=== PATIENT | female | born 1985 | race Caucasian/White ===

== ENCOUNTER → 2017-08-28 18:04 | Outpatient (CLI) | payer OTHER, SELFPAY ==
[2017-08-28 07:33] VITALS: BP 112/72; BMI 22.9
== END ==
PROVIDERS: Visit Provider Physician Assistant
DX: J02.9 Acute pharyngitis, unspecified (principal)
CPT/HCPCS: 87077; 87081

== ENCOUNTER → 2017-09-06 17:53 | Outpatient (CLI) | payer OTHER, SELFPAY ==
--- NOTE | 2017-09-06 17:54 | CYSPIN_PTH ---
PATIENT: AMTTY PALENCIA LOC: [facility] U#:[id number] AGE/SX: 40/F ROOM: RE09/06/[address]: Dr. Taryn Cardenas MD : [id number] BED: DIS: SPEC #: [id number] RECD: 09/09/17 12:57 STATUS: JOVAN JORDIN #: [id number] RACHEL: 09/06/17 17:[address]: Taryn Cardenas DEPT: CYTOLOGY RECD BY: Miguel Santillan ENTERED: 09/09/17 12:58 SP TYPE: CYSPIN FL OTHR DR: No Primary Care Phys Tissues: Urine Procedures: Pap Stain (control) Special Stain Group II Cytospin Fluid HEADER OPERATION: Not noted PRE-OP DIAGNOSIS: Hematuria TISSUE SUBMITTED: Urine for cytology DIAGNOSIS CYTOLOGY Urine for cytology (cytospin): Negative for malignant cells. SJ:mir 09/10/17 CYTOLOGY STUDY Slides are reviewed. The specimen predominantly consists of benign squamous cells. CYTOLOGY GROSS Received is 10 ml of clear yellow fluid labeled with the patient's name and and designated per the requisition as urine. Submitted for cytology preparation. 09/09/17 TC:4 CPT: 47777
[2017-09-06 17:59] LABS: Cytology, Body Fluid / CSF SEE PATHOLOGY REPORT
== END ==
PROVIDERS: Visit Provider Obstetrics & Gynecology
DX: R30.0 Dysuria (principal); R31.29 Other microscopic hematuria
CPT/HCPCS: 87086; 88108; 88313

== ENCOUNTER → 2018-03-17 18:22 | Outpatient (CLI) | payer OTHER, SELFPAY ==
[2018-03-17 21:50] LABS: Chlamydia Trachomatis by PCR Negative (Negative); Neisserai gonorrhoeae by PCR Negative (Negative); Probe Check PASS; Sample Adequacy Control PASS; Specimen Processing Control PASS
== END ==
PROVIDERS: Visit Provider Nurse Practitioner Women's Health
DX: R30.0 Dysuria (principal)
CPT/HCPCS: 87070; 87086; 87088; 87205; 87491; 87591

== ENCOUNTER → 2018-03-19 13:58 | Outpatient (CLI) | payer OTHER, SELFPAY | PROVIDERS: Visit Provider Nurse Practitioner Women's Health | DX: R10.2 Pelvic and perineal pain (principal) | CPT/HCPCS: 76830; 76856; 93976 ==

== ENCOUNTER → 2018-04-10 16:21 | Outpatient (CLI) | payer OTHER, SELFPAY | PROVIDERS: Visit Provider Nurse Practitioner Women's Health | DX: N89.8 Other specified noninflammatory disorders of vagina (principal) | CPT/HCPCS: 87070; 87205 ==

== ENCOUNTER → 2018-04-30 08:11 | Outpatient (CLI) | payer OTHER, SELFPAY ==
--- NOTE | 2018-04-30 08:15 | US_ITS ---
STUDY: ULTRASOUND OF THE FEMALE PELVIS - COMPLETE REASON FOR EXAM: Female, 32 years old. Pain LMP: February 26, 2018 TECHNIQUE: Transabdominal and endovaginal TECHNICAL QUALITY: Adequate. COMPARISON: None. FINDINGS: The uterus is anteverted and is in a midline position. The uterus measures 6.7 x 4.0 x 3.4 cm. Trace fluid in the uterine cervix. The endometrium measures 3.2 mm in thickness, and is hyperechoic. There is no demonstrated endometrial mass. There is no demonstrated myometrial mass. The patient has an I.U.D. in place The right ovary is visualized. The right ovary measures 2.4 x 2.8 x 1.5 cm. There is a 1.3 cm complex hypoechoic ovarian lesion. There is normal arterial and normal venous vascularity. The left ovary is visualized. The left ovary measures 2.0 x 1.9 x 1.0 cm. There is no left ovarian cyst or ovarian mass. There is no visualized left adnexal mass or complex lesion. There is normal arterial and normal venous vascularity. There is mild fluid in the cul-de-sac. The pre void volume of the bladder was 369 ml. US/Transvaginal Non- IMPRESSION: Complex right ovarian nodule. Mild pelvic fluid. IUD in the uterus. Trace fluid in the cervical canal. Electronically Signed: Adam Rob DO at 21:27 EDT Tel [phone], Service support ,
--- NOTE | 2018-04-30 08:15 | US_ITS ---
STUDY: ULTRASOUND OF THE FEMALE PELVIS - COMPLETE REASON FOR EXAM: Female, 32 years old. Pain LMP: February 26, 2018 TECHNIQUE: Transabdominal and endovaginal TECHNICAL QUALITY: Adequate. COMPARISON: None. FINDINGS: The uterus is anteverted and is in a midline position. The uterus measures 6.7 x 4.0 x 3.4 cm. Trace fluid in the uterine cervix. The endometrium measures 3.2 mm in thickness, and is hyperechoic. There is no demonstrated endometrial mass. There is no demonstrated myometrial mass. The patient has an I.U.D. in place The right ovary is visualized. The right ovary measures 2.4 x 2.8 x 1.5 cm. There is a 1.3 cm complex hypoechoic ovarian lesion. There is normal arterial and normal venous vascularity. The left ovary is visualized. The left ovary measures 2.0 x 1.9 x 1.0 cm. There is no left ovarian cyst or ovarian mass. There is no visualized left adnexal mass or complex lesion. There is normal arterial and normal venous vascularity. There is mild fluid in the cul-de-sac. The pre void volume of the bladder was 369 ml. US/Pelvic (Non ) IMPRESSION: Complex right ovarian nodule. Mild pelvic fluid. IUD in the uterus. Trace fluid in the cervical canal. Electronically Signed: Adam Rob DO at 21:27 EDT Tel [phone], Service support ,
== END ==
PROVIDERS: Visit Provider Obstetrics & Gynecology
DX: N80.9 Endometriosis, unspecified (principal)
CPT/HCPCS: 76830; 76856; 93976

== ENCOUNTER → 2018-06-23 13:44 | Outpatient (CLI) | payer OTHER, SELFPAY ==
[2018-06-23 08:18] VITALS: BMI 22.1
[2018-06-25 11:58] LABS: HPV APTIMA, High Risk Negative (Negative)
== END ==
PROVIDERS: Referring Provider Obstetrics & Gynecology; Visit Provider Obstetrics & Gynecology
DX: Z12.4 Encounter for screening for malignant neoplasm of cervix (principal)
CPT/HCPCS: 87624; 88175; G0145

== ENCOUNTER → 2018-07-29 14:30 | Outpatient (CLI) | payer OTHER, SELFPAY ==
[2018-07-28 14:39] VITALS: BMI 22.1
== END ==
PROVIDERS: Referring Provider Physician Assistant; Visit Provider Physician Assistant
DX: J02.9 Acute pharyngitis, unspecified (principal)
CPT/HCPCS: 87081

== ENCOUNTER → 2018-09-24 16:09 | Outpatient (CLI) | payer OTHER, SELFPAY ==
[2018-09-24 15:20] VITALS: BMI 22.1
== END ==
PROVIDERS: Referring Provider Nurse Practitioner Women's Health; Visit Provider Nurse Practitioner Women's Health
DX: N76.0 Acute vaginitis (principal)
CPT/HCPCS: 87070; 87205

== ENCOUNTER → 2018-10-03 14:38 | Outpatient (CLI) | payer OTHER, SELFPAY ==
[2018-10-03 09:53] VITALS: BMI 22.1
== END ==
PROVIDERS: Referring Provider Physician Assistant Surgical; Visit Provider Physician Assistant Surgical
DX: J02.9 Acute pharyngitis, unspecified (principal)
CPT/HCPCS: 87081

== ENCOUNTER → 2018-10-06 15:59 | Outpatient (CLI) | payer OTHER, SELFPAY ==
[2018-10-06 13:09] VITALS: BMI 22.1
== END ==
PROVIDERS: Referring Provider Nurse Practitioner Women's Health; Visit Provider Nurse Practitioner Women's Health
DX: N76.0 Acute vaginitis (principal)

== ENCOUNTER → 2018-11-03 17:29 | Outpatient (CLI) | payer OTHER, SELFPAY ==
[2018-11-03 12:42] VITALS: BMI 22.1
== END ==
PROVIDERS: Referring Provider Nurse Practitioner Women's Health; Visit Provider Nurse Practitioner Women's Health
DX: N89.8 Other specified noninflammatory disorders of vagina (principal)
CPT/HCPCS: 87070; 87106; 87205

== ENCOUNTER → 2019-01-08 | Outpatient (CLI) | payer OTHER, SELFPAY ==
[2019-01-08 13:01] VITALS: BMI 22.2
[2019-01-08 14:35] LABS: hCG Titer Quant., Serum 315 mIU/mL (1-3)
== END | disposition home or self-care (01) ==
PROVIDERS: Referring Provider Nurse Practitioner Women's Health; Visit Provider Nurse Practitioner Women's Health
DX: N91.2 Amenorrhea, unspecified (principal); N76.0 Acute vaginitis
CPT/HCPCS: 36415; 84702; 87070; 87205

== ENCOUNTER → 2019-01-10 | Outpatient (CLI) | payer OTHER, SELFPAY ==
[2019-01-10 10:25] VITALS: BMI 22.2
[2019-01-10 11:48] LABS: hCG Titer Quant., Serum 580 mIU/mL (1-3)
== END | disposition home or self-care (01) ==
LOC: LAB 10:26
PROVIDERS: Nurse Practitioner Women's Health; Referring Provider Obstetrics & Gynecology; Visit Provider Obstetrics & Gynecology
DX: N91.2 Amenorrhea, unspecified (principal)
CPT/HCPCS: 36415; 84702

== ENCOUNTER → 2019-02-16 | Outpatient (CLI) | payer OTHER, SELFPAY ==
[2019-02-16 12:21] VITALS: BMI 22.2
[2019-02-16 12:58] LABS: Absolute Lymphocyte Count 2.83 X10^3/uL (0.83-4.51); Absolute Neutrophil Count 6.1 X10^3/uL (2.0-7.7); Basophil# 0.04 X10^3/uL; Basophil% 0.4 % (0-1); Eosinophil# 0.08 X10^3/uL; Eosinophils% 0.8 % (0-5); Hematocrit 39.3 % (37-47); Hemoglobin 13.6 g/dL (12.0-15.0); Lymphocyte # 2.83 X10^3/ul (4.0); Lymphocyte % 29.3 % (19-41); Mean Corp Hgb Conc 34.6 g/dL (32-36); Mean Corpuscular Hgb 31.1 pg (27.0-32.0); Mean Corpuscular Volume 89.9 fL (81-99); Mean Platelet Vol. 9.5 fl (6.2-12.0); Monocyte# 0.62 X10^3/uL; Monocyte% 6.4 % (0-10); NRBC Flagged by Analyzer 0 % (0-5); Neutrophil # 6.06 X10^3/uL (2.7-7.7); Neutrophil % 62.8 % (47-70); Platelet Count 251 K/mm3 (150-450); RBC Distribution Width CV 10.9 % (11.6-14.6); RBC Distribution Width SD 35.8 fl (35.1-43.9); Red Blood Count 4.37 M/mm3 (4.2-5.4); White Blood Count 9.7 K/mm3 (4.4-11.0)
[2019-02-16 23:34] LABS: HIV - WCH Non-Reactive (Nonreactive)
[2019-02-19 13:35] LABS: Rapid Plasmin Reagin (RPR) NONREACTIVE (NONREACTIVE)
== END | disposition home or self-care (01) ==
LOC: PAVLAB 12:47
PROVIDERS: Referring Provider Obstetrics & Gynecology; Visit Provider Obstetrics & Gynecology
DX: Z34.90 Encounter for supervision of normal pregnancy, unspecified, unspecified trimester (principal)
CPT/HCPCS: 36415; 85025; 86592; 86703; 86762; 86850; 86900; 87086

== ENCOUNTER → 2019-02-23 | Outpatient (CLI) | payer OTHER, SELFPAY ==
[2019-02-16 12:21] VITALS: BMI 22.2
== END | disposition home or self-care (01) ==
LOC: PAVLAB 08:49
PROVIDERS: Referring Provider Nurse Practitioner Women's Health; Visit Provider Nurse Practitioner Women's Health
DX: Z34.90 Encounter for supervision of normal pregnancy, unspecified, unspecified trimester (principal)
CPT/HCPCS: 36415

== ENCOUNTER → 2019-04-15 08:43 | Outpatient (CLI) | payer OTHER, SELFPAY ==
[2019-04-15 08:35] VITALS: BMI 22.2
== END ==
PROVIDERS: Referring Provider Obstetrics & Gynecology; Visit Provider Obstetrics & Gynecology
DX: Z36.9 Encounter for antenatal screening, unspecified (principal)
CPT/HCPCS: 36415

== ENCOUNTER → 2019-04-23 13:12 | Outpatient (CLI) | payer OTHER, SELFPAY ==
[2019-04-23 10:13] VITALS: BMI 22.2
== END ==
PROVIDERS: Visit Provider Nurse Practitioner Women's Health
DX: N76.0 Acute vaginitis (principal)
CPT/HCPCS: 87070; 87205

== ENCOUNTER → 2019-04-28 12:09 | Outpatient (CLI) | payer OTHER, SELFPAY ==
[2019-03-17 13:15] VITALS: BMI 22.2
[2019-04-23 10:13] VITALS: BMI 22.2
--- NOTE | 2019-04-28 12:12 | US_ITS ---
EXAM DESCRIPTION: Ultrasound anatomy CLINICAL HISTORY: 33 years, 10 months, Obstetrical screening. The gestation age based upon the LMP is 19 weeks, 3 days for an estimated due date of 09/19/2019. The gestational age based upon today's ultrasound measurements is 20 weeks, 3 days for an estimated due date of 09/12/2019. TECHNIQUE: High-resolution transabdominal real-time sonography of the pelvis was performed. anatomy was assessed. COMPARISON: No relevant. Ultrasound images are available. FINDINGS: There is a gravid uterus with a single intrauterine gestation in the cephalic presentation. The cervical length is 3.5 cm. The placenta is posterior in location with a Grade 0 echotexture. The cord inserts into the placenta and is off centered, 2.1 cm from the edge of the placenta and there is no evidence of placenta previa. Amniotic fluid index is 12.94 cm. motion and heart activity are demonstrated throughout the examination. Measured heart rate is 148 beats per minute. The anatomy was assessed. There are normal appearing lateral ventricles without hydrocephalus or intracerebral mass or cyst. The cerebellum appears normal. The cervical, thoracic and lumbar spines were assessed in coronal and transverse projections and appear normal. Four chambers are present within the heart. The heart and lungs appear normal. The diaphragm, gastric bubble, intra-abdominal structures and cord insertion appear normal. The abdominal wall is also intact. The bilateral kidneys and urinary bladder also appear unremarkable. The extremities, as visualized, appear normal. Three vessels are noted in the umbilical cord.The nose and mouth and facial profile are normal. The gender is female. BPD: 4.91 cm corresponding to a 20 week 5 day gestation. HC: 18.26 cm corresponding to a 20 week 4 day gestation. AC: [15.61 cm corresponding to a 20 week day gestation. FL: 3.13 cm corresponding to a 19 week or day gestation. FL/AC: 20.04 % (20-24 % is normal range.) HC/AC: 1.17 Estimated weight: 348 grams, +/- 51 grams. US/OB Anatomy Scan IMPRESSION: Single, viable intrauterine gestation in cephalic presentation at approximately 20 weeks 3 days based upon today's ultrasound measurements. Electronically Signed: Reece Jimenez, at 7:45 EDT Tel , Service support ,
== END ==
PROVIDERS: Referring Provider Obstetrics & Gynecology; Visit Provider Obstetrics & Gynecology
DX: Z34.90 Encounter for supervision of normal pregnancy, unspecified, unspecified trimester (principal)
CPT/HCPCS: 76805

== ENCOUNTER → 2019-05-11 12:20 | Outpatient (CLI) | payer OTHER, SELFPAY ==
[2019-05-11 08:31] VITALS: BMI 22.2
== END ==
PROVIDERS: Referring Provider Obstetrics & Gynecology; Visit Provider Obstetrics & Gynecology
DX: N89.8 Other specified noninflammatory disorders of vagina (principal)
CPT/HCPCS: 87070; 87205

== ENCOUNTER → 2019-06-17 09:24 | Outpatient (CLI) | payer OTHER, SELFPAY ==
[2019-06-12 08:36] VITALS: BMI 22.2
[2019-06-17 10:48] LABS: Absolute Lymphocyte Count 2.09 X10^3/uL (0.83-4.51); Absolute Neutrophil Count 10.2 X10^3/uL (2.0-7.7); Basophil# 0.03 X10^3/uL; Basophil% 0.2 % (0-1); Eosinophil# 0.15 X10^3/uL; Eosinophils% 1.1 % (0-5); Hematocrit 35.6 % (37-47); Lymphocyte # 2.09 X10^3/ul (4.0); Lymphocyte % 15.5 % (19-41); Mean Corp Hgb Conc 33.7 g/dL (32-36); Mean Corpuscular Hgb 31.1 pg (27.0-32.0); Mean Corpuscular Volume 92.2 fL (81-99); Mean Platelet Vol. 9.5 fl (6.2-12.0); Monocyte# 0.81 X10^3/uL; NRBC Flagged by Analyzer 0 % (0-5); Neutrophil # 10.19 X10^3/uL (2.7-7.7); Neutrophil % 75.9 % (47-70); Platelet Count 264 K/mm3 (150-450); RBC Distribution Width CV 11.9 % (11.6-14.6); RBC Distribution Width SD 40.5 fl (35.1-43.9); Red Blood Count 3.86 M/mm3 (4.2-5.4); White Blood Count 13.5 K/mm3 (4.4-11.0)
[2019-06-17 11:03] LABS: Glucose Challenge Gest 1H 50g 97 mg/dL (70-140)
[2019-06-17 11:29] LABS: Hepatitis B Surface Antigen Non-Reactive (Nonreactive)
== END ==
PROVIDERS: Referring Provider Obstetrics & Gynecology; Visit Provider Obstetrics & Gynecology
DX: Z34.01 Encounter for supervision of normal first pregnancy, first trimester (principal)
CPT/HCPCS: 36415; 82950; 85025; 87340

== ENCOUNTER → 2019-07-02 15:59 | Outpatient (CLI) | payer OTHER, SELFPAY ==
[2019-07-02 15:48] VITALS: BMI 22.2
[2019-07-02 17:10] LABS: Absolute Lymphocyte Count 2.84 X10^3/uL (0.83-4.51); Absolute Neutrophil Count 11.4 X10^3/uL (2.0-7.7); Basophil# 0.05 X10^3/uL; Basophil% 0.3 % (0-1); Eosinophil# 0.09 X10^3/uL; Eosinophils% 0.6 % (0-5); Hematocrit 37.2 % (37-47); Hemoglobin 12.4 g/dL (12.0-15.0); Lymphocyte # 2.84 X10^3/ul (4.0); Lymphocyte % 18.1 % (19-41); Mean Corp Hgb Conc 33.3 g/dL (32-36); Mean Platelet Vol. 9.8 fl (6.2-12.0); Monocyte# 1.07 X10^3/uL; Monocyte% 6.8 % (0-10); NRBC Flagged by Analyzer 0 % (0-5); Neutrophil # 11.37 X10^3/uL (2.7-7.7); Neutrophil % 72.6 % (47-70); Platelet Count 265 K/mm3 (150-450); White Blood Count 15.7 K/mm3 (4.4-11.0)
[2019-07-02 17:31] LABS: ALB/GLOB Ratio 0.8 RATIO (0.9-2.4); AST(SGOT) 17 U/L (15-37); Alanine Aminotransfer ALT/SGPT 20 U/L (13-56); Albumin, Serum 2.8 g/dL (3.2-5.0); Alkaline Phosphatase 84 U/L (45-117); Anion Gap 7 (5-15); BUN 6 mg/dL (7-18); BUN/Creat Ratio 11.7 RATIO (10-20); Calcium,Total 8.5 mg/dL (8.5-10.1); Chloride 108 mmol/L (98-107); Creatinine, Serum 0.51 mg/dL (0.55-1.02); EST Glomerular Filtration Rate 147 mL/min (>60); Est Glom Filt Rate - Afr Amer 178 mL/min (>60); Globulin 3.7 g/dL (2.2-4.2); Glucose 67 mg/dL (74-106); Lipase 147 U/L (73-393); Potassium 3.8 mmol/L (3.5-5.1); Protein, Total 6.5 g/dL (6.4-8.2); Sodium Level 140 mmol/L (136-145)
== END ==
PROVIDERS: Referring Provider Obstetrics & Gynecology; Visit Provider Obstetrics & Gynecology
DX: O26.899 Other specified pregnancy related conditions, unspecified trimester (principal); R10.9 Unspecified abdominal pain; Z3A.00 Weeks of gestation of pregnancy not specified
CPT/HCPCS: 36415; 80053; 83690; 85025

== ENCOUNTER → 2019-08-21 16:49 | Outpatient (CLI) | payer OTHER, SELFPAY ==
[2019-08-21 13:35] VITALS: BMI 22.2
== END ==
PROVIDERS: Referring Provider Obstetrics & Gynecology; Visit Provider Obstetrics & Gynecology
DX: Z34.01 Encounter for supervision of normal first pregnancy, first trimester (principal)
CPT/HCPCS: 87081

== ENCOUNTER 2019-08-31 03:25 | Inpatient (IN) | payer OTHER, SELFPAY ==
[2019-07-21 11:26] VITALS: BMI 22.2
[2019-08-28 08:17] VITALS: BMI 22.2
[2019-08-31 02:57] VITALS: BMI 27.7
[2019-08-31 03:25] LABS: ROM Internal Control Test YES-OK TO RESULT pt. (Internal QC); ROM Patient Test POSITIVE (Negative)
[2019-08-31] MEDS: 0.9% Saline Lock 10 ML Syringe IV ×3 (03:49→20:49)
[2019-08-31 04:00] LABS: Absolute Lymphocyte Count 1.88 X10^3/uL (0.83-4.51); Absolute Neutrophil Count 6.6 X10^3/uL (2.0-7.7); Basophil# 0.02 X10^3/uL; Basophil% 0.2 % (0-1); Eosinophil# 0.05 X10^3/uL; Eosinophils% 0.6 % (0-5); Hematocrit 34.9 % (37-47); Hemoglobin 11.6 g/dL (12.0-15.0); Lymphocyte # 1.88 X10^3/ul (4.0); Lymphocyte % 20.7 % (19-41); Mean Corp Hgb Conc 33.2 g/dL (32-36); Mean Corpuscular Hgb 29.7 pg (27.0-32.0); Mean Corpuscular Volume 89.5 fL (81-99); Mean Platelet Vol. 9.9 fl (6.2-12.0); Monocyte# 0.48 X10^3/uL; Monocyte% 5.3 % (0-10); NRBC Flagged by Analyzer 0 % (0-5); Neutrophil # 6.55 X10^3/uL (2.7-7.7); Neutrophil % 72.1 % (47-70); Platelet Count 221 K/mm3 (150-450); RBC Distribution Width CV 12.8 % (11.6-14.6); RBC Distribution Width SD 41.1 fl (35.1-43.9); White Blood Count 9.1 K/mm3 (4.4-11.0)
[2019-08-31] MEDS: Lactated Ringers 1,000 ML 50 ML IV (05:18)
[2019-08-31] MEDS: Lactated Ringers 500 ML 999 ML IV ×2 (05:19→06:20)
[2019-08-31] MEDS: guaiFENesin 10 ML UDC (200MG/10ML) 15 ML PO ×3 (05:50→14:45)
[2019-08-31] MEDS: fentaNYL-bupivacaine (epidural) 100 ML BAG EPIDURAL ×2 (06:48→12:16)
[2019-08-31] MEDS: Lactated Ringers 1,000 ML 200 ML IV ×2 (11:30→16:37)
--- NOTE | 2019-08-31 12:44 | HP.PCM_ITS ---
- Problem List (1) SROM (spontaneous rupture of membranes) Status: Acute (2) Active labor at term Status: Acute (3) Family history of congenital heart defect Status: Acute Comment: AV duct, echo normal (4) Family history of Klinefelter syndrome Status: Acute Comment: Nephew stillborn (5) Status: Acute Qualifiers: Comment: declined carrier, genetic- low risk, AFP- neg, Normal anatomy (6) Supervision of normal Status: Acute Qualifiers: Comment: PRR KERLINE 09/17/2019 girl Khurram Spouse Sincere History Date of Admission: 09/01/19 Final KERLINE: 09/17/19 Gestational age: 37 Weeks and 5 Days History of this : This is a 34 year-old, G [], P [], at 37 weeks gestational age. Medical History: Medical History (Last Reviewed 08/28/19 @ 08:16 by Hyacinth Lu) precancerous moles Headache R51 Surgical History: Surgical History (Last Reviewed 08/28/19 @ 08:16 by Hyacinth Lu) H/O laparoscopy Z98.890 Ovarian cyst 05/2013 Allergies No Known Allergies Allergy (Verified 08/31/19 02:59) Home Medications: Home Medications multivitamin no.47-iron fum 27 mg-folate no.1 1 mg-dha 300 mg capsule cap PO cap 02/16/19 famotidine 20 mg tablet 20 mg PO BID #60 tab 06/26/19 lactobacillus combination no.8 3 billion cell capsule 3,000 mmu cells PO DAILY 08/23/19 DiphenhydrAMINE [Benadryl] 25 mg PO QHS PRN PRN 08/31/19 Guaifenesin [Robitussin] 10 ml PO Q4H PRN PRN 08/31/19 Smoking Status: Never smoker Alcohol: None Number of Fetus(es): 1 NST - FHR Rate Baby A Baseline: 130 Variability:: Moderate Decelerations:: None NST Reactive:: Yes FHR Category:: Category I Uterine Activity:: regular History Past Pregnancies: Past Pregnancies Delivery Date Name GA/ Weeks Outcome Route Wt Sex Labor Length Anesthesia Delivery Location Provider FOB Labs: Mom's Problem List Problem Status Onset Code SROM (spontaneous rupture of membranes) Acute Active labor at term Acute Mom's Labs & Results 08/31/19 08/31/19 08/31/19 03:10 03:45 03:45 WBC 9.1 RBC 3.90 L Hgb 11.6 L Hct 34.9 L MCV 89.5 MCH 29.7 MCHC 33.2 RDW Std Deviation 41.1 RDW Coeff of Benji 12.8 Plt Count 221 MPV 9.9 Immature Gran % (Auto) 1.100 H Neut % (Auto) 72.1 H Lymph % (Auto) 20.7 Cloud % (Auto) 5.3 Eos % (Auto) 0.6 Baso % (Auto) 0.2 Absolute Neuts (auto) 6.6 Absolute Lymphs (auto) 1.88 Nucleated RBC % 0 Vag Amniotic Fld Detect POSITIVE H Blood Type B POSITIVE Antibody Screen NEGATIVE Course Did the patient receive Yes care? Labs Blood Type: B RH: POSITIVE RPR/VDRL/Syphilis Nonreactive Rubella status Immune HbSAg Negative Date Done: 06/17/19 HIV/AIDS Non-Reactive Group B Strep: Negative Current Obstetrical History Gestational Diabetes No Incompetent Cervix No Infertility No IUGR No Macrosomia No Hypertension/Pre-eclampsia No Placenta Previa/Abruption No PTL/PROM No Uterine anomaly No Oligohydramnios No Polyhydramnios No Multiple gestation No Past Medical History Asthma No Diabetes No Hypertension No Heart disease No Mitral valve prolapse No Neurologic/Seizure disorder/ No Migraines Kidney disease No Liver disease No Varicosities No Clotting disorders/Hx of DVT No Thyroid Dysfunction No Other medical diseases No Psychiatric disorders No Major trauma No Abnormal PAP smear No Sleep apnea No Mammogram in the last 2 years No Medications Taken During Last Date/Time of Medication 08/27/19 0800 Taken: [Tamiflu] Reason for taking medication [ + flu Tamiflu] Social History Marital Status: Alleged father Sincere Shah Hx Smoking No Smoking Status Never smoker Expected Infant Delivery Method: Spontaneous Vaginal Review of Systems Constitutional: Denies: Fever, Malaise Eyes: Denies: Blurred vision, Vision Change HEENT: Denies: Head Aches, Visual Changes Cardiovascular: Denies: Chest Pain, Palpitations Respiratory: Denies: Cough, Shortness of Breath, Wheezing Gastrointestinal: Denies: Abdominal Pain, Diarrhea, Nausea, Vomiting Genitourinary: Denies: Dysuria, Hematuria Musculoskeletal: Denies: Joint Pain, Muscle pain Skin: Denies: Lesions, Rash Neurological: Denies: Blurred vision, Focal weakness, Headaches Psychiatric: Denies: Anxiety, Depression Endocrine: Denies: Heat/ Cold Intolerance Hematologic/ Lymphatic: Denies: Easy Bruising, Easy Bleeding Physical Exam General: Alert, Cooperative, No apparent distress HEENT: Atraumatic, Normocephalic. Negative for: Thyromegaly, Lymphadenopathy Cardiovascular: Regular rate Lungs: Normal air movement Abdomen: Soft, Non Tender, Gravid Neurological: Deep Tendon Reflexes 2+/4 and Symmetrical, Neuro grossly intact. 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 Negative for: Vulvar lesions Estimated gestational size: Appropriate for gestational size Presentation: Cephalic Assessment/Plan All Active Problems (Last Reviewed 08/28/19 @ 08:16 by Hyacinth Lu) SROM (spontaneous rupture of membranes) (Acute) Active labor at term (Acute) Family history of congenital heart defect (Acute) Family history of Klinefelter syndrome (Acute) (Acute) Supervision of normal (Acute) Dyspareunia (Resolved) Microscopic hematuria (Resolved) Pharyngitis (Resolved) Pharyngitis, acute (Resolved) Recurrent vaginitis (Resolved) Vaginal dryness (Resolved) This is a 34 year-old, at 37 weeks gestational age presents in active labor with spontaneous rupture membranes Patient presents in active labor plan expectant management for pitocin if needed. Pain management: Plans epidural. GBS negative. Management of any complications: None I have reviewed the [facility] and made any clinically relevant updates..
[2019-08-31] MEDS: Oxytocin 30 units/NS 500 ml 30 UNITS/500 ML IV.SOLN 334 UNITS IV (17:30)
[2019-08-31] MEDS: Senna/Docusate Sodium 1 Tablet PO (19:43)
[2019-08-31] MEDS: Naproxen 250 MG Tablet 500 MG PO (19:43)
[2019-08-31] MEDS: Dibucaine 30 GM Tube 1 APPLIC TOPICAL (21:39)
[2019-08-31 23:37] VITALS: BP 126/69; PULSE 60; RESP 16; TEMP 36.6
[2019-08-31] MEDS: Acetaminophen 500 MG Tablet 1000 MG PO (23:47)
--- NOTE | 2019-09-01 01:20 | PCM.OPRPT ---
Problem List (1) SROM (spontaneous rupture of membranes) Status: Acute (2) Active labor at term Status: Acute (3) Family history of congenital heart defect Status: Acute Comment: AV duct, echo normal (4) Family history of Klinefelter syndrome Status: Acute Comment: Nephew stillborn (5) Status: Acute Qualifiers: Comment: declined carrier, genetic- low risk, AFP- neg, Normal anatomy (6) Supervision of normal Status: Acute Qualifiers: Comment: PRR KERLINE 09/17/2019 girl Khurram Spouse Sincere Vaginal Delivery Maternal Presentation: Active Labor ial 37 week with srom Amniotic Membrane Rupture Type: Spontaneous at home Amniotic Fluid Description: Clear Date of Procedure: 08/31/19 Pre-Operative Diagnosis: ial srom recurrent periodic variables Post-Operative Diagnosis: same Surgery/ Procedure Performed: Vacuum Assisted Vaginal Delivery Type of Anesthesia: Epidural Description of Procedure: Patient began pushing and after 2 and half hours of pushing the head was at a +3 to +4 station but recurrent periodic variables were seen and therefore the decision was made to proceed with a vacuum-assisted vaginal delivery to shorten the second stage of labor. Patient was counseled regarding the risk benefits and alternatives and agreed to the procedure. Patient began pushing again and with poles with 2 contractions and 1 pop-off delivered the head in the [NICOLE] presentation. The head was delivered atraumatically . The anterior and posterior shoulders delivered without complication followed by the rest of the infant and the infant was placed on the maternal abdomen. Delayed cord clamping was employed for approximately 60 seconds. Cord was clamped and cut and gentle traction was applied to the cord and the placenta delivered spontaneously immediately following it was noted to be intact with three-vessel cord. The perineum and vagina were inspected and noted to have a second-degree perineal laceration that was repaired in the usual fashion with 3-0 Vicryl repeat. EBL was 400 cc. Patient and infant tolerated delivery well. Presentation: NICOLE Placental Delivery Description: Spontaneous Placenta Disposition: [facility] Cord Vessel Description: 3 Vessels Cord Entanglement: None Estimated Blood Loss: 300 A gender: Female Episiotomy Description: None Laceration: Perineal Extension/lac, 2nd degree Medications given after delivery: IV Pitocin Complications: None Multi Select Codes - Urinary/Genital Urinary/Genital CPT Codes: 40204 Vaginal Delivery global pkg - vacuum assisted
[2019-09-01 03:24] VITALS: BP 108/55; PULSE 62; RESP 16; TEMP 36.5
[2019-09-01] MEDS: Naproxen 250 MG Tablet 500 MG PO ×2 (03:29→13:24)
--- NOTE | 2019-09-01 08:04 | PCM.PN.OB ---
Patient Problems: Active and Suspected Problems (Last Reviewed 08/28/19 @ 08:16 by Hyacinth Lu) SROM (spontaneous rupture of membranes) (Acute) Active labor at term (Acute) Subjective: Doing well,hemorrhoids most bothersome. Denies CP, SOB, N,V. Ambulating well, tolerating po. Lochia moderate, going well. - Physical Exam Vitals/I&O's: Vital Signs Temp Pulse Resp BP 97.7 F L 62 16 108/55 L 09/01/19 03:24 09/01/19 03:24 09/01/19 03:24 09/01/19 03:24 Weight: 177 lb 0.499 oz Body Mass Index (BMI) 27.7 Intake and Output for Last 24 Hours 08/30/19 08/31/19 09/01/19 23:59 23:59 23:59 Intake Total 5076.67 / 5076.67 Output Total 2075 / 2075 800 / 800 Balance 3001.67 / 3001.67 -800 / -800 General: Alert, Oriented x3 Abdomen: Soft, Non Tender, Non-Distended, - - FF below U Current Medications Acetaminophen (Tylenol) 1,000 mg PO Q8H PRN PRN PRN Reason: Pain Score 1-310 Last Admin: 08/31/19 23:47 Dose: 1,000 mg Documented by: Bisacodyl (Dulcolax) 10 mg RECTAL UD PRN PRN Reason: If no BM Dibucaine (Dibucaine) 1 applic TOPICAL TID PRN PRN; Protocol PRN Reason: Discomfort Last Admin: 08/31/19 21:39 Dose: 1 applicatio Documented by: Hydrocortisone (Hytone) 1 applic TOPICAL TID PRN PRN; Protocol PRN Reason: Discomfort Methylergonovine Maleate (Methergine) 0.2 mg IM X1 PRN PRN Reason: Excess bleeding/uterine atony Naproxen (Naprosyn) 500 mg PO Q8H PRN PRN PRN Reason: Pain Score 1-3/10 Last Admin: 09/01/19 03:29 Dose: 500 mg Documented by: Ondansetron HCl (Zofran) 4 mg IV Q4H PRN PRN PRN Reason: Nausea Oxycodone HCl (Oxyir) 5 - 10 mg PO Q4H PRN PRN PRN Reason: Pain Score 4-10/10 Senna/Docusate Sodium (Senokot-S, Stephanie-Colace) 1 - 2 tablet PO DAILY PRN PRN PRN Reason: Constipation Last Admin: 08/31/19 19:43 Dose: 2 tablet Documented by: Simethicone (Mylicon) 80 mg PO PCHS PRN PRN Reason: Indigestion/Stomach pain Sodium Chloride () 5 - 15 ml IV UD PRN PRN Reason: SALINE FLUSH Last Admin: 08/31/19 20:49 Dose: 10 ml Documented by: Medical Necessity - Tobacco Use Smoking Status: Never smoker Assessment/Plan All Active Problems (Last Reviewed 08/28/19 @ 08:16 by Hyacinth Lu) SROM (spontaneous rupture of membranes) (Acute) Active labor at term (Acute) Family history of congenital heart defect (Acute) Family history of Klinefelter syndrome (Acute) (Acute) Supervision of normal (Acute) Dyspareunia (Resolved) Microscopic hematuria (Resolved) Pharyngitis (Resolved) Pharyngitis, acute (Resolved) Recurrent vaginitis (Resolved) Vaginal dryness (Resolved) s/p PPD # 1 1. routine post delivery care 2. breast feeding- support given 3. rh positive 4. rubella immune 5. expectant hemorrhoid management, stool softener etc
[2019-09-01 08:14] VITALS: BP 103/57; PULSE 62; RESP 14; TEMP 36.1
[2019-09-01] MEDS: Acetaminophen 500 MG Tablet 1000 MG PO ×2 (08:31→19:49)
[2019-09-01 13:34] VITALS: BP 113/65; PULSE 71; RESP 15; TEMP 36.2
[2019-09-01] MEDS: Senna/Docusate Sodium 1 Tablet PO (15:59)
[2019-09-01] MEDS: guaiFENesin 10 ML UDC (200MG/10ML) PO (16:00)
[2019-09-01 16:03] VITALS: BP 109/66; PULSE 75; RESP 18; TEMP 36.3
[2019-09-01] MEDS: Prenatal Vits Tablet 1 TABLET PO (17:48)
[2019-09-01 19:50] VITALS: BP 115/67; PULSE 68; RESP 18; TEMP 36.8; O2SAT 97
[2019-09-02 01:54] VITALS: BP 108/60; PULSE 61; RESP 18; TEMP 36.6; O2SAT 98
[2019-09-02] MEDS: guaiFENesin 10 ML UDC (200MG/10ML) PO ×2 (05:50→11:02)
[2019-09-02] MEDS: Naproxen 250 MG Tablet 500 MG PO ×2 (05:50→14:23)
--- NOTE | 2019-09-02 07:56 | PCM.PN.OB ---
Patient Problems: Active and Suspected Problems (Last Reviewed 08/28/19 @ 08:16 by Hyacinth Lu) SROM (spontaneous rupture of membranes) (Acute) Active labor at term (Acute) Subjective: Doing well, no complaints.Pain controlled. Denies CP, SOB, N,V. Ambulating well, tolerating po. Lochia moderate, with support - Physical Exam Vitals/I&O's: Vital Signs Temp Pulse Resp BP Pulse Ox 97.9 F 61 18 108/60 98 09/02/19 01:54 09/02/19 01:54 09/02/19 01:54 09/02/19 01:54 09/02/19 01:54 Oxygen Delivery Method Room Air Weight: 177 lb 0.499 oz Body Mass Index (BMI) 27.7 Intake and Output for Last 24 Hours 08/31/19 09/01/19 09/02/19 23:59 23:59 23:59 Intake Total 5076.67 / 5076.67 Output Total 2075 / 2075 800 / 800 Balance 3001.67 / 3001.67 -800 / -800 General: Alert, Oriented x3 Abdomen: Soft, Non Tender, Non-Distended, - - FF below U Current Medications Acetaminophen (Tylenol) 1,000 mg PO Q8H PRN PRN PRN Reason: Pain Score 1-3/10 Last Admin: 09/01/19 19:49 Dose: 1,000 mg Documented by: Bisacodyl (Dulcolax) 10 mg RECTAL UD PRN PRN Reason: If no BM Dibucaine (Dibucaine) 1 applic TOPICAL TID PRN PRN; Protocol PRN Reason: Discomfort Last Admin: 08/31/19 21:39 Dose: 1 applicatio Documented by: Guaifenesin (Robitussin) 10 ml PO Q4H PRN PRN PRN Reason: coughing Last Admin: 09/02/19 05:50 Dose: 10 ml Documented by: Hydrocortisone (Hytone) 1 applic TOPICAL TID PRN PRN; Protocol PRN Reason: Discomfort Methylergonovine Maleate (Methergine) 0.2 mg IM X1 PRN PRN Reason: Excess bleeding/uterine atony Naproxen (Naprosyn) 500 mg PO Q8H PRN PRN PRN Reason: Pain Score 1-3/10 Last Admin: 09/02/19 05:50 Dose: 500 mg Documented by: Ondansetron HCl (Zofran) 4 mg IV Q4H PRN PRN PRN Reason: Nausea Oxycodone HCl (Oxyir) 5 - 10 mg PO Q4H PRN PRN PRN Reason: Pain Score 4-10/10 Multivit/Folic Acid/Iron (Prenatabs Fa) 1 tablet PO DAILY@1200 JULIETA Last Admin: 09/01/19 17:48 Dose: 1 tablet Documented by: Senna/Docusate Sodium (Senokot-S, Stephanie-Colace) 1 - 2 tablet PO DAILY PRN PRN PRN Reason: Constipation Last Admin: 09/01/19 15:59 Dose: 2 tablet Documented by: Simethicone (Mylicon) 80 mg PO PCHS PRN PRN Reason: Indigestion/Stomach pain Sodium Chloride () 5 - 15 ml IV UD PRN PRN Reason: SALINE FLUSH Last Admin: 08/31/19 20:49 Dose: 10 ml Documented by: Medical Necessity - Tobacco Use Smoking Status: Never smoker Assessment/Plan All Active Problems (Last Reviewed 08/28/19 @ 08:16 by Hyacinth Lu) SROM (spontaneous rupture of membranes) (Acute) Active labor at term (Acute) Family history of congenital heart defect (Acute) Family history of Klinefelter syndrome (Acute) (Acute) Supervision of normal (Acute) Dyspareunia (Resolved) Microscopic hematuria (Resolved) Pharyngitis (Resolved) Pharyngitis, acute (Resolved) Recurrent vaginitis (Resolved) Vaginal dryness (Resolved) s/p PPD # 2 1. routine post delivery care 2. breast feeding- support given 3. rh positive 4. rubella immune 5. home today
--- NOTE | 2019-09-02 07:57 | DCINST_ITS ---
Additional Instructions: If you experience any of the following, contact your healthcare provider. * Bleeding that soaks a pad every hour for 2 hours * Fever 100.4 or higher * Unrelieved incision or abdominal pain * Swelling, redness, discharge or bleeding from your incision or episiotomy site * Your incision begins to separate * Problems urinating (including inability to urinate or burning while urinating). * Visual changes * Severe headache * Flu-like symptoms * Pain or redness in one of both of your breasts * Pain, warmth, tenderness or swelling in your legs, especially the calf area * Frequent nausea and vomiting * Symptoms of depression or anxiety If you experience any of the following, call 911 or go to the nearest Emergency Room. * Chest pain * Problems breathing * Seizure activity * Partial or complete paralysis of a body part, slurred speech, weakness or drooping of the face, or a sudden inability to walk or hold your balance Allergies/Adverse Reactions: Allergies No Known Allergies Allergy (Verified 08/31/19 02:59) Medications to take at Discharge multivitamin no.47-iron fum 27 mg-folate no.1 1 mg-dha 300 mg capsule cap PO cap 02/16/19 famotidine 20 mg tablet 20 mg PO BID #60 tab 06/26/19 lactobacillus combination no.8 3 billion cell capsule 3,000 mmu cells PO DAILY 08/23/19 DiphenhydrAMINE [Benadryl] 25 mg PO QHS PRN PRN 08/31/19 Guaifenesin [Robitussin] 10 ml PO Q4H PRN PRN 08/31/19 Primary Care Physician: Care Physician,No Primary [Primary Care Provider] - Test Results: Test results from this visit will be discussed in further detail at your follow- up appointment, if applicable.
--- NOTE | 2019-09-02 07:57 | PCM.DCVAG ---
Additional Instructions: If you experience any of the following, contact your healthcare provider. Bleeding that soaks a pad every hour for 2 hours Fever 100.4 or higher Unrelieved incision or abdominal pain Swelling, redness, discharge or bleeding from your incision or episiotomy site Your incision begins to separate Problems urinating (including inability to urinate or burning while urinating). Visual changes Severe headache Flu-like symptoms Pain or redness in one of both of your breasts Pain, warmth, tenderness or swelling in your legs, especially the calf area Frequent nausea and vomiting Symptoms of depression or anxiety If you experience any of the following, call 911 or go to the nearest Emergency Room. Chest pain Problems breathing Seizure activity Partial or complete paralysis of a body part, slurred speech, weakness or drooping of the face, or a sudden inability to walk or hold your balance Allergies/Adverse Reactions: Allergies No Known Allergies Allergy (Verified 08/31/19 02:59) Medications to take at Discharge multivitamin no.47-iron fum 27 mg-folate no.1 1 mg-dha 300 mg capsule cap PO cap 02/16/19 famotidine 20 mg tablet 20 mg PO BID #60 tab 06/26/19 lactobacillus combination no.8 3 billion cell capsule 3,000 mmu cells PO DAILY 08/23/19 DiphenhydrAMINE [Benadryl] 25 mg PO QHS PRN PRN 08/31/19 Guaifenesin [Robitussin] 10 ml PO Q4H PRN PRN 08/31/19 Primary Care Physician: Care Physician,No Primary [Primary Care Provider] - Test Results: Test results from this visit will be discussed in further detail at your follow-up appointment, if applicable.
[2019-09-02 09:30] VITALS: BP 112/69; PULSE 74; RESP 16; TEMP 36.7
[2019-09-02] MEDS: Acetaminophen 500 MG Tablet 1000 MG PO (09:50)
[2019-09-02] MEDS: Senna/Docusate Sodium 1 Tablet PO (09:50)
[2019-09-02] MEDS: Prenatal Vits Tablet 1 TABLET PO (11:02)
[2019-09-02 14:30] VITALS: BP 129/77; PULSE 60; RESP 18; TEMP 36.6
[2019-09-02 19:21] VITALS: BP 130/79; PULSE 70; RESP 16; TEMP 36.4; O2SAT 99
== END 2019-09-02 20:00 | disposition home or self-care (01) | DRG 806 ==
LOC: WPOUT 03:26 → WP 03:26
PROVIDERS: Admitting Provider Obstetrics & Gynecology; Referring Provider Obstetrics & Gynecology; Visit Provider Obstetrics & Gynecology
DX: O76 Abnormality in fetal heart rate and rhythm complicating labor and delivery (principal); O22.43 Hemorrhoids in pregnancy, third trimester; O70.1 Second degree perineal laceration during delivery; Z37.0 Single live birth; Z3A.37 37 weeks gestation of pregnancy
CPT/HCPCS: 59025; 59050; 84112; 85025; 86850; 86900; 86901; 99218; J7120; A4216; G0378

== ENCOUNTER → 2019-09-04 16:34 | Outpatient (CLI) | payer OTHER, SELFPAY ==
[2019-08-31 02:57] VITALS: BMI 27.7
[2019-09-04 17:15] LABS: Absolute Lymphocyte Count 2.37 X10^3/uL (0.83-4.51); Absolute Neutrophil Count 7.6 X10^3/uL (2.0-7.7); Basophil# 0.02 X10^3/uL; Basophil% 0.2 % (0-1); Eosinophil# 0.18 X10^3/uL; Eosinophils% 1.6 % (0-5); Hematocrit 39.1 % (37-47); Hemoglobin 12.6 g/dL (12.0-15.0); Lymphocyte # 2.37 X10^3/ul (4.0); Lymphocyte % 21.6 % (19-41); Mean Corp Hgb Conc 32.2 g/dL (32-36); Mean Corpuscular Hgb 29.7 pg (27.0-32.0); Mean Corpuscular Volume 92.2 fL (81-99); Mean Platelet Vol. 9.5 fl (6.2-12.0); Monocyte# 0.75 X10^3/uL; Monocyte% 6.8 % (0-10); NRBC Flagged by Analyzer 0 % (0-5); Neutrophil % 69.3 % (47-70); Platelet Count 350 K/mm3 (150-450); RBC Distribution Width CV 12.8 % (11.6-14.6); Red Blood Count 4.24 M/mm3 (4.2-5.4)
[2019-09-04 17:57] LABS: ALB/GLOB Ratio 0.7 RATIO (0.9-2.4); AST(SGOT) 31 U/L (15-37); Alanine Aminotransfer ALT/SGPT 40 U/L (13-56); Albumin, Serum 2.7 g/dL (3.2-5.0); Alkaline Phosphatase 140 U/L (45-117); Anion Gap 7 (5-15); BUN 14 mg/dL (7-18); BUN/Creat Ratio 22.2 RATIO (10-20); Calcium,Total 9.1 mg/dL (8.5-10.1); Chloride 109 mmol/L (98-107); Creatinine, Serum 0.63 mg/dL (0.55-1.02); EST Glomerular Filtration Rate 116 mL/min (>60); Est Glom Filt Rate - Afr Amer 140 mL/min (>60); Globulin 3.8 g/dL (2.2-4.2); Glucose 70 mg/dL (74-106); Potassium 3.8 mmol/L (3.5-5.1); Protein, Total 6.5 g/dL (6.4-8.2); Sodium Level 140 mmol/L (136-145)
== END ==
PROVIDERS: Referring Provider Obstetrics & Gynecology; Visit Provider Obstetrics & Gynecology
DX: R03.0 Elevated blood-pressure reading, without diagnosis of hypertension (principal); R60.9 Edema, unspecified
CPT/HCPCS: 36415; 80053; 85025

== ENCOUNTER → 2019-09-28 | Outpatient (CLI) | payer OTHER, SELFPAY ==
[2019-09-27 10:15] VITALS: BMI 27.7
[2019-09-28 10:46] LABS: D-Dimer Quantitative (DVT/PE) 0.41 FEU/ug/m (0.27-0.49)
== END | disposition home or self-care (01) ==
LOC: LABSPEC 10:29
PROVIDERS: Referring Provider Nurse Practitioner Primary Care; Visit Provider Nurse Practitioner Primary Care
DX: R06.89 Other abnormalities of breathing (principal); R05 Cough
CPT/HCPCS: 85379